=== PATIENT | male | born 1955 | race Caucasian/White ===

== ENCOUNTER 2024-01-20 17:13 | Emergency (ER) | payer MEDICARE, SELFPAY ==
--- NOTE | ~2024-01-20 | CT_ITS ---
EXAMINATION: CT abdomen pelvis w con DATE: 01/20/2024 18:18 INDICATION: Abdominal pain. Back pain. TECHNIQUE: Computed tomography (CT) of the abdomen and pelvis was performed with 100 mL Omnipaque 350 intravenous contrast. Automated exposure control and iterative reconstruction technique were employe d. The dose-length product was 707.98 mGy-cm. COMPARISON: None. FINDINGS: The lungs demonstrate mild atelectasis. No pleural effusion. The heart size is normal. No p ericardial effusion. There is diffuse hepatic steatosis. The gallbladder, spleen, pancreas, and adren al glands are normal. There are cysts in the kidneys measuring up to 3.4 cm on the left. There is a d elayed right-sided contrast nephrogram. There is mild right hydronephrosis and hydroureter. There is a 2 mm stone at right ureterovesicular junction. The prostate is mildly enlarged. There is a left ing uinal hernia containing fat. There are no dilated loops of bowel. The appendix is normal. There are n o pathologically enlarged lymph nodes. There is no free intraperitoneal fluid. There is severe thorac ic and lumbar spondylosis. IMPRESSION: 1. 2 mm stone at right ureterovesicular junction with mild right hydronephrosis and hydroureter. Reviewed, dictated and finalized at location E. IMPRESSION: 1. 2 mm stone at right ureterovesicular junction with mild right hydronephrosi s and hydroureter.
[2024-01-20 17:19] VITALS: BP 158/72; PULSE 76; RESP 18; TEMP 36.6; O2SAT 100
[2024-01-20 17:39] LABS: Basophils Absolute Auto 0.1 K/mm3 (0.0-0.1); Basophils Percent Auto 0.6 % (0.2-1.2); Eosinophils Absolute Auto 0.2 K/mm3 (0-0.3); Eosinophils Percent Auto 1.3 % (0-4.4); Hemoglobin 15.1 g/dL (14.0-18.0); Immature Granulocyte Absolute 0.04 K/mm3 (0.00-0.031); Immature Granulocyte Percent A 0.3 % (0-0.5); Lymphocytes Absolute Auto 1.11 K/mm3 (0.9-3.2); Lymphocytes Percent Auto 9.4 % (18.3-44.2); Mean Corpuscular HGB Conc 33.6 g/dl (32-36); Mean Corpuscular Hemoglobin 30.8 pg (26-34); Mean Corpuscular Volume 91.6 fl (80-100); Mean Platelet Volume 10.2 fl (7.4-10.4); Monocytes Absolute Auto 0.8 K/mm3 (0.1-0.6); Monocytes Percent Auto 6.4 % (2.6-8.5); Neutrophils Absolute Auto 9.7 K/mm3 (1.3-6.7); Platelet Count Result 273 k/mm3 (150-375); Red Blood Count 4.91 M/mm3 (4.6-6.20); Red Cell Distribution Width 11.6 % (11.5-14.5); White Blood Count 11.8 K/mm3 (4.5-10.0)
[2024-01-20 17:53] LABS: Alanine Aminotransferase 49 U/L (6-50); Albumin Level 4.9 g/dL (3.5-5.1); Alkaline Phosphatase 49 U/L (38-126); Anion Gap 10 mmol/L (4-12); Aspartate Amino Transferase 37 U/L (17-59); Bilirubin,Total 1.6 mg/dL (0.2-1.3); Blood Urea Nitrogen 19 mg/dL (9-20); Calcium 10.2 mg/dL (8.4-10.2); Carbon Dioxide 22 mmol/L (22-30); Chloride 107 mmol/L (98-107); Estimated CRCL calculation 59 ml/min; Estimated Glomerular Filt Rate 55; Glucose 117 mg/dL (65-110); Lipase 106 U/L (23-300); Potassium 3.9 mmol/L (3.4-5.0); Sodium 139 mmol/L (137-145)
[2024-01-20] MEDS: ONDANSETRON INJ 4 MG/2 ML VIAL IV PUSH (17:59)
[2024-01-20] MEDS: MORPHINE SULFATE (*CRX) 4 MG/ML INJ IV PUSH (17:59)
[2024-01-20 18:00] LABS: Appearance Urine Turbid (Clear); Bacteria Urine None Seen /hpf; Bilirubin Urine Negative (Negative); Blood Urine 3+ (Negative); Color Urine Dark Yellow (Yellow); Glucose Urine UA Negative (Negative); Ketones Urine Trace mg/dL (Negative); Leukocyte Esterase Ur Trace LEU/UL (Negative); Need Manual Microscopic Reviewed; Nitrate Urine Negative (Negative); Non Pathogenic Casts 0-2; Protein Urine 1+ mg/dL (Negative); RBC Urine >100 /hpf (0-2); Specific Grav Ur 1.026 (1.001-1.035); Squamous Epithelial Cell Urine None Seen /hpf (Few); WBC Urine 0-5 /hpf (0-3); pH Urine 5.5 (5.0-9.0)
[2024-01-20] MEDS: SODIUM CHLORIDE 0.9% IV 1,000 ML 150 ML IV CONT (18:01)
--- NOTE | 2024-01-20 18:07 | ED.ABDPAIN ---
HPI - Abdominal Pain General Chief Complaint: Abdominal Pain Stated Complaint: abdominal pain Time Seen by Provider: 01/20/24 17:33 Source: patient Mode of arrival: ambulatory Limitations: no limitations History of Present Illness HPI narrative: 68-year-old otherwise healthy here with a complaint of back and lower abdominal pain which started last night got worse this afternoon. He denies any nausea or vomiting. MD elicited complaint: abdominal pain Pertinent past history: none Onset (ago): day(s) (1) Pain Consistency: constant Location: diffuse Severity: moderate Quality: aching Radiation: back Migration to: no migration Exacerbating factors: nothing Related Data Allergies Allergy/AdvReac Type Severity Reaction Status Date / Time No Known Allergies Allergy Mild Verified 01/20/24 17:14 Review of Systems Review of Systems: All systems reviewed & are unremarkable except as noted in HPI and below Eyes: Eyes: Reports no additional eye complaints ENT: Reports system reviewed and no additional complaints, except as documented Cardiovascular: Cardiovascular: Reports no additional cardiovascular complaints Respiratory: Respiratory: Reports no additional respiratory complaints Gastrointestinal: Gastrointestinal: Reports as per HPI Musculoskeletal: Musculoskeletal: Reports as per HPI Neurologic: Reports system reviewed and no additional complaints, except as documented Psychiatric: Psychiatric: Reports no additional psychiatric complaints PMFSH Family History Family History Father Cerebrovascular accident Social History Social History Smoking status: Never smoker Alcohol intake: current Exam Narrative: GENERAL: Well-appearing, well-nourished, and in no acute distress. HEAD: Normocephalic, atraumatic. EYES: PERRLA and EOMI. ENT: Nares clear, no rhinorrhea or epistaxis. Mucous membranes moist. NECK: Supple. CHEST: Clear to auscultation. No respiratory distress. HEART: Regular rate and rhythm. No murmur heard. Normal peripheral pulses. ABDOMEN: Soft, diffuse mild tenderness, nondistended, normal active bowel sounds. EXTREMITIES: Normal range of motion. No edema. SKIN: Warm, dry, no rash. NEURO: No focal deficits. Alert and oriented x3. PSYCH: Normal mood and affect. Course Course Emergency Course: Patient states his pain is slightly improved over still continues to have pain. I did inform him and his about the lab work, CT findings. Review very low dose of Toradol 15 mg IV. Advised him to drink plenty of fluids take pain medication as prescribed. Follow-up with the urologist if he is unable to pass the stone Vital Signs Vital signs: Vital Signs Temperature 36.6 C 01/20/24 17:19 Pulse Rate 76 01/20/24 17:19 Respiratory Rate 18 01/20/24 17:19 Blood Pressure 158/72 H 01/20/24 17:19 Pulse Oximetry 100 01/20/24 17:19 Temperature 36.6 C 01/20/24 17:19 Pulse Rate 76 01/20/24 17:19 Respiratory Rate 18 01/20/24 17:19 Blood Pressure 158/72 H 01/20/24 17:19 Pulse Oximetry 100 01/20/24 17:19 MDM - Abdominal Pain Differential Diagnosis Differential diagnosis: Likely abdominal pain and calculus of kidney Medical Records Attestation: I reviewed the patient's medical records. Lab Data Attestation: I reviewed the patient's lab results. 01/20/24 17:25 01/20/24 17:25 Labs: Lab Results 01/20/24 Range/Units 17:25 WBC 11.8 H (4.5-10.0) K/mm3 RBC 4.91 (4.6-6.20) M/mm3 Hgb 15.1 (14.0-18.0) g/dL Hct 45.0 (42.0-52.0) % MCV 91.6 (80-100) fl MCH 30.8 (26-34) pg MCHC 33.6 (32-36) g/dl RDW 11.6 (11.5-14.5) % Plt Count 273 (150-375) k/mm3 MPV 10.2 (7.4-10.4) fl Immature Gran % (Auto) 0.3 (0-0.5) % Neut % (Auto) 82.0 H (45.5-73.1) % Lymph % (Auto) 9.4 L (18.3-44.2) % [place] % (Auto)
[2024-01-20 18:12] LABS: Add Urine Microscopic? YES
[2024-01-20] MEDS: KETOROLAC 30 MG/ML VIAL (*BKC) 15 MG IV PUSH (18:48)
[2024-01-20 19:27] VITALS: BP 141/74; PULSE 76; RESP 20; O2SAT 100
--- NOTE | 2024-01-30 15:47 | PC.NURSE ---
LATE ENTRY This note is being entered to document information to the patient's record. The following information was omitted on [01/20/24], by [Marya Arnett]. NS stop time 1900.
== END 2024-01-20 19:28 | disposition home or self-care (01) ==
PROVIDERS: Emergency Medicine; Emergency Provider Family Medicine; PCP Emergency Medicine
DX: N13.2 Hydronephrosis with renal and ureteral calculous obstruction (principal)
CPT/HCPCS: 36415; 74177; 80053; 81001; 83690; 85025; 96361; 96374; 96375; 99284; J1885; J2270; J2405; J7030; Q9967

== ENCOUNTER 2024-08-04 04:35 | Day surgery (SDC) | payer MEDICARE, SELFPAY ==
[2024-07-20 14:48] VITALS: BMI 32.3
[2024-08-04 11:16] VITALS: BP 150/77; PULSE 74; RESP 16; TEMP 37; O2SAT 97
[2024-08-04] MEDS: LACTATED RINGERS 1,000 ML 150 ML IV CONT (11:17)
--- NOTE | 2024-08-04 12:28 | P.PNAN_ITS ---
Anes - Initial Pre Proc Eval Procedure: Operation Date: 08/04/24 12:30 Proposed Procedures p Screening Colonoscopy - Christiano Gorman MD Date/Time: 08/04/24 12:28 Surgeon: Christiano Gorman MD Pre Op Diagnosis: screening neoplasm colon Patient Data Age: 68 Gender: M Height: 1.8 m Weight: 102.7 kg Last Vital Signs Temp 98.6 F 08/04/24 11:16 Pulse 74 08/04/24 11:16 Resp 16 08/04/24 11:16 BP 150/77 H 08/04/24 11:16 Pulse Ox 97 08/04/24 11:16 O2 Del Method Room Air 08/04/24 11:16 Allergies Allergy/AdvReac Type Severity Reaction Status Date / Time No Known Allergies Allergy Mild Verified 08/04/24 11:12 Home Medications Medication Instructions Recorded Confirmed Type amlodipine 10 mg tablet 10 mg PO DAILY 07/20/24 08/04/24 History lisinopril 40 mg tablet 40 mg PO DAILY 07/20/24 08/04/24 History simvastatin 40 mg tablet 40 mg PO DAILY 07/20/24 08/04/24 History aspirin 81 mg tablet,delayed 81 mg PO DAILY 08/04/24 08/04/24 History release Patient hx anesthesia problems: none Family hx anesthesia problems: none Results Review: All pre-operative results and documents have been reviewed as part of the pre- operative evaluation. [facility] Family History Family History Father Cerebrovascular accident Social History Social History Smoking status: Never smoker Alcohol intake: never Substance use: never Substance use type: does not use Living arrangements: with family Spiritual care concerns: No Anes - Eval Final PreProcedure Day of Procedure 08/04/24 12:28 Patient weight: obese Heart: regular rate and rhythm Lungs: clear to auscultation Airway: Mallampati scale class III Neurological: alert and oriented Last oral intake: >/= 8 hours ASA classification: III Emergent: no Anesthetic plan: proceed Anesthesia type and monitoring: general GIVS and standard monitoring Results Review: All pre-operative results and documents have been reviewed as part of the pre- operative evaluation. HTN, hyperlipidemia, JOSE on CPAP. Informed Consent: The patient's anesthetic plan and its attendant risks and benefits were discussed with the patient/family/POA. Questions were solicited and answers provided to the satisfaction of the patient/family/POA.
--- NOTE | 2024-08-04 12:33 | PM.HPGS ---
History of Present Illness History of Present Illness Consent: Risks, benefits, and alternatives have been discussed and questions answered. Patient agrees to proceed with procedure. Chief complaint: screening neoplasm colon Narrative: Ricki Kraft is a 68 year old male with colon polyp 5 years ago Review of Systems Review of Systems: All systems reviewed & are unremarkable except as noted in HPI and below PMFSH Past Medical History Medical History (Updated 08/04/24 @ 12:33 by Christiano Gorman MD) Colon polyp Family History Family History Father Cerebrovascular accident Social History Social History Smoking status: Never smoker Alcohol intake: never Substance use: never Substance use type: does not use Living arrangements: with family Spiritual care concerns: No Meds Home Medications and Allergies Home Medications Medication Instructions Recorded Confirmed Type amlodipine 10 mg tablet 10 mg PO DAILY 07/20/24 08/04/24 History lisinopril 40 mg tablet 40 mg PO DAILY 07/20/24 08/04/24 History simvastatin 40 mg tablet 40 mg PO DAILY 07/20/24 08/04/24 History aspirin 81 mg tablet,delayed 81 mg PO DAILY 08/04/24 08/04/24 History release Allergies Allergy/AdvReac Type Severity Reaction Status Date / Time No Known Allergies Allergy Mild Verified 08/04/24 11:12 Vital Signs Vital Signs - 24 hr 08/04/24 11:16 Temperature 98.6 F Pulse Rate 74 Respiratory Rate 16 Blood Pressure 150/77 H Pulse Oximetry 97 Oxygen Delivery Room Air Exam Const: General: comfortable and no acute distress HENMT: Face/Nose/Sinus: Normal nares present Eyes: General: appearance normal, both eyes and all related structures Neck: Neck: no JVD Resp: Auscultation: clear to auscultation bilaterally Cardio: Rate: regular rate Rhythm: regular rhythm GI: Inspection: non-distended GI Palp: Yes Soft to palpation Skin: General skin exam: normal color Neuro: General: gait normal Speech: normal speech Extrem: General: normal to inspection Psych: Mental Status: mental status grossly normal Assessment and Plan Assessment and plan (1) Colon polyp: Code(s): K63.5 - Polyp of colon Status: Acute Assessment and Plan: colonoscopy
[2024-08-04 12:51] VITALS: BP 107/64; PULSE 73; RESP 15; O2SAT 97
[2024-08-04 13:01] VITALS: BP 94/64; PULSE 70; RESP 18; O2SAT 100
[2024-08-04 13:11] VITALS: BP 138/76; PULSE 66; RESP 15; O2SAT 100
== END 2024-08-04 13:20 | disposition home or self-care (01) ==
PROVIDERS: PCP Emergency Medicine; Referring Provider Emergency Medicine; Visit Provider Internal Medicine Gastroenterology
PROC: 0DJD8ZZ Inspection of Lower Intestinal Tract, Via Natural or Artificial Opening Endoscopic (ICD-10-PCS; CPT 45378; principal; 2024-08-04 12:30)
DX: Z12.11 Encounter for screening for malignant neoplasm of colon (principal); D12.0 Benign neoplasm of cecum; K64.8 Other hemorrhoids; K57.30 Diverticulosis of large intestine without perforation or abscess without bleeding; E66.9 Obesity, unspecified; Z68.31 Body mass index [BMI] 31.0-31.9, adult; Z79.82 Long term (current) use of aspirin; Z82.49 Family history of ischemic heart disease and other diseases of the circulatory system
CPT/HCPCS: 45385; 88305; J2003; J2704; J7120

== ENCOUNTER 2025-08-04 10:38 | Outpatient (CLI) | payer MEDICARE, SELFPAY ==
[2025-08-03 17:00] LABS: Estimated Glomerular Filt Rate 55
--- OUTSIDE RECORDS SUMMARY | 2025-08-03 20:08 | XMS_ITS | Clinical Summary ---
Author Organization [facility] Address [address] [address] Phone Care Team Providers Care Linux Administrator Name Role Phone Telly Upton Primary Care Provider [phone] Allergies No known active allergies Medications amLODIPine (NORVASC) 5 MG Tablet Take 5 mg by mouth daily. Active Aspirin 81 MG Tablet Take 81 mg by mouth daily. Active ibuprofen (MOTRIN) 200 MG Tablet Take 400 mg by mouth every 8 hours as needed. Active simvastatin (ZOCOR) 40 MG Tablet Take 40 mg by mouth every evening. Active lisinopril (PRINIVIL, ZESTRIL) 40 MG Tablet Take 40 mg by mouth daily. Active Family History Medical History Relation Name Comments Hypertension Brother Stroke Father Diabetes Mother Hypertension Mother Kidney Disease Mother Hypertension Sister Relation Name Status Comments Brother Father Mother Sister Social History Tobacco Use Types Packs/Day Years Used Date Smoking Tobacco: Never Smokeless Tobacco: Never Alcohol Use Standard Drinks/Week Comments Yes 4 (1 standard drink = 0.6 oz pur e alcohol) DAILY Sex and Gender Information Value Date Recorded Sex Assigned at Not on file Legal Sex Male 3:06 PM CDT Gender Identity Not on file Sexual Orientation Not on file Last Filed Vital Signs Vital Sign Reading Time Taken Comments Blood Pressure 108/76 05/17/2019 9:01 AM CDT Pulse 86 05/17/2019 7:06 AM CDT Temperature 36 C (96.8 F) 05/17/2019 9:01 AM CDT Respiratory Rate 14 05/17/2019 9:01 AM CDT Oxygen Saturation 98% 05/17/2019 9:01 AM CDT Inhaled Oxygen Concentration - - Weight 99.8 kg (220 lb) 05/17/2019 7:06 AM CDT Height 182.9 cm (6') 05/17/2019 7:06 AM CDT Body Mass Index 29.84 05/17/2019 7:06 AM CDT Plan of Treatment Health Maintenance Due Date Last Done Comments Hepatitis C Virus (HCV) Screening 1955 TdaP Immunization 1955 Cologuard 1999 Immunochemical Fecal Occult Blood 1999 Pneumococcal Immunization (5 0+ years) (1 of 1 - PCV) 2004 Zoster Immunization (1 of 2) 2004 Colonoscopy 05/17/2024 05/17/2019 Colorectal Cancer Screening 05/17/2024 Influenza Immunization (#1) 2025 SARS-COV-2 Immunization (1 - season) 2025 Respiratory Syncytial Virus (RSV) Immunization (Adult) (1 - 1-dose 75+ series) 2029 Hepatitis B Immunization Aged Out No longer eligible based on patient's age to complete this topic Human Papillomavirus (HPV) Immunization Aged Out No longer eligible b ased on patient's age to complete this topic Meningococcal Immunization (ACWY) Aged Out No longer eligible based on patient's age to complete this topic Rotavirus Immunization Aged Out No lo nger eligible based on patient's age to complete this topic Care Teams Linux Administrator Relationship Specialty Start Date End Date Telly Upton [address] [place] [address] PCP - General Family Medicine 02/19/19
--- NOTE | ~2025-08-04 | CT_ITS ---
EXAMINATION: CTA chest PE protocol DATE: 08/04/2025 11:09 CDT INDICATION: Shortness of breath TECHNIQUE: Computed tomographic angiography (CTA) of the chest was performed with 100 mL Omnipaque-350 intravenous contrast. The dose-length product was 575.00 mGy-cm. Maximum intensity projection 3D-reconstructions of the aorta and other arteries were constructed by the technologist on a separate workstation. COMPARISON: None. FINDINGS: Study is technically adequate without evidence for pulmonary embolism. Heart size normal. No significant pleural or pericardial effusion. No thoracic lymphadenopathy. There is a 6 mm subsolid nodule right upper lobe at the apex. 3 mm solid nodule right lower lobe. There is nodular pleural thickening bilaterally in the apices. IMPRESSION: 1. Subsolid 6 mm nodule right apex, indeterminate; recommend follow-up chest CT in 3-6 months. Small 3 mm right lower lobe nodule may represent benign granuloma or incidental finding. 2: Mild bilateral upper lobe pleural nodularity nonspecific; could relate to prior inflammation or scarring. 3: No evidence for pulmonary embolism or acute airspace disease. Reviewed, dictated and finalized at location O. IMPRESSION: 1. Subsolid 6 mm nodule right apex, indeterminate; recommend follow-up chest CT in 3-6 months. Small 3 mm right lower lobe nodule may represent benign granulo ma or incidental finding. 2: Mild bilateral upper lobe pleural nodularity nonspecific; could relate to pr ior inflammation or scarring. 3: No evidence for pulmonary embolism or acute airspace disease.
--- OUTSIDE RECORDS SUMMARY | 2025-08-04 11:44 | XMS_ITS | Clinical Summary ---
Author Organization [facility] Address [address] [address] Phone Care Team Providers Care Hospitality Services Manager Name Role Phone Telly Upton Primary Care Provider [phone] Allergies No known active allergies Medications amLODIPine [...] age to complete this topic Care Teams Hospitality Services Manager Relationship Specialty Start Date End Date Telly Upton [address] [place] [address] PCP - General Family Medicine 02/19/19
== END 2025-08-04 10:39 | disposition home or self-care (01) ==
PROVIDERS: PCP Emergency Medicine; Visit Provider Emergency Medicine
DX: R06.02 Shortness of breath (principal); R91.8 Other nonspecific abnormal finding of lung field
CPT/HCPCS: 71275; Q9967

== ENCOUNTER 2025-08-26 12:24 | Outpatient (CLI) | payer MEDICARE, SELFPAY ==
--- NOTE | ~2025-08-26 | US_ITS ---
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 Findings: Correlating with the palpable finding there is a complex cystic focus measuring 4.6 x 0.5 x 4.1 cm, no abnormal flow IMPRESSION: Complex focus detailed above, the appearance is not typical for lipoma and may represent a resolving hematoma or abscess. Clinical correlation is required. Follow-up is recommended to assess resolution Reviewed, dictated and finalized at location P. AL UPSTREAM MARKETING MANAGER IMPRESSION: Complex focus detailed above, the appearance is not typical for lip idalmis and may represent a resolving hematoma or abscess. Clinical correlation is required. Follow-up is recommended to assess resolution
== END 2025-08-26 12:25 | disposition home or self-care (01) ==
PROVIDERS: PCP Emergency Medicine; Visit Provider Emergency Medicine
DX: R22.41 Localized swelling, mass and lump, right lower limb (principal)
CPT/HCPCS: 76882

== ENCOUNTER 2025-09-27 09:27 | Outpatient (CLI) | payer MEDICARE, SELFPAY ==
--- NOTE | 2025-09-27 09:39 | ECHO_ITS ---
Patient Info Name: Ricki Kraft Age: 70 years : 1955 Gender: Male Ht: 71 in Wt: 211 lbs BSA: 2.21 m2 HR: 69 bpm BP: 126 / 84 mmHg Technical Quality: Fair Exam Date: 09/27/2025 9:57 AM Patient Status: O Admit Date: 09/27/2025 Exam Type: CA echo doppler color flow Complete two-dimensional, color flow and Doppler transthoracic echocardiogram is performed. Pin Worker: Zuly Rae Attending Provider: Gabriel Mcdowell DO Summary 1. Complete two-dimensional, color flow and Doppler transthoracic echocardiogram is performed. 2. Left ventricular chamber dimension is normal. 3. Left ventricular systolic function is normal, estimated at 60-65. 4. The left ventricular diastolic function is grade I diastolic dysfunction. 5. E/e' 8 is minimally elevated. 6. There is mild to moderate mitral valve regurgitation. 7. There is trace tricuspid valve regurgitation. 8. No pulmonary hypertension, estimated pulmonary arterial systolic pressure is 28 mmHg. Left Ventricle E/e' 8 is minimally elevated. Left ventricular chamber dimension is normal. Left ventricular systolic function is normal, estimated at 60-65. The left ventricular diastolic function is grade I diastolic dysfunction. Right Ventricle Right ventricular chamber dimension is normal. Right ventricular systolic function is normal. Left Atria Left atrial chamber dimension is normal. Right Atria Right atrial chamber dimension is normal. Aortic Valve The aortic valve is trileaflet. There is no aortic valve stenosis. There is no aortic valve regurgitation. Pulmonic Valve There is no pulmonic regurgitation. Mitral Valve There is no mitral valve stenosis. There is mild to moderate mitral valve regurgitation. Tricuspid Valve There is trace tricuspid valve regurgitation. No pulmonary hypertension, estimated pulmonary arterial systolic pressure is 28 mmHg. Pericardium/Pleural There is no pericardial effusion. Inferior Vena Cava Normal inferior vena cava with >50% collapse upon inspiration consistent with normal right atrial pressure, 5 mmHg. Aorta The aortic root size at the sinus of Valsalva is normal. Left Ventricular Outflow Tract Name Value Normal LVOT 2D LVOT Diameter 2.0 cm LVOT Doppler LVOT Peak Velocity 115 cm/s LVOT Peak Gradient 5 mmHg LVOT Mean Gradient 3 mmHg LVOT VTI 22 cm LVOT VTI/AV VTI Ratio 0.8 LVOT Stroke Volume 71 ml LVOT CO 5.0 l/min LVOT CI 2.3 l/min/m2 Pulmonic Valve Name Value Normal RVOT Doppler RVOT Peak Velocity 111 cm/s RVOT Peak Gradient 5 mmHg PV Doppler PV Peak Velocity 137 cm/s PV Peak Gradient 7 mmHg Mitral Valve Name Value Normal MV Diastolic Function MV E Peak Velocity 67 cm/s MV A Peak Velocity 72 cm/s MV E/A 0.9 MV Decel Time (PW) 212 ms Tricuspid Valve Name Value Normal TV Regurgitation Doppler TR Peak Velocity 240 cm/s TR Peak Gradient 18 mmHg Estimated PAP/RSVP RA Pressure 5 mmHg <=5 PA Systolic Pressure 28 mmHg <36 RV Systolic Pressure 28 mmHg <36 TV Annular TDI TV Lateral Hilaria s' Velocity 11.0 cm/s >=9.5 Aorta Name Value Normal Ascending Aorta Ao Root Diameter (MM) 3.0 cm Ao Root Diam Index (MM) 1.3 cm/m2 Aortic Valve Name Value Normal AV Doppler AV Peak Velocity 144 cm/s AV Peak Gradient 8 mmHg AV Mean Gradient 5 mmHg AV VTI 27 cm AV Area (Cont Eq VTI) 2.7 cm2 >=3.0 AV Area (Cont Eq Adiel) 2.6 cm2 AV DI (Adiel) 0.80 AV Regurgitation 2D LVOT Area 3.2 cm2 Ventricles Name Value Normal LV Dimensions 2D/MM IVS Diastolic Thickness (2D) 1.1 cm 0.6-1.0 IVS Diastole Thickness (MM) 1.0 cm 0.6-1.0 LVID Diastole (2D) 5.0 cm 4.2-5.8 LVID Diastole (MM) 4.9 cm 4.2-5.8 LVIW Diastolic Thickness (2D) 0.9 cm 0.6-1.0 LVIW Diastolic Thickness (MM) 0.8 cm 0.6-1.0 LVID Systole (2D) 3.3 cm 2.5-4.0 LVID Systole (MM) 2.5 cm 2.5-4.0 LVOT Diameter 2.0 cm LV Mass (2D Cubed) 179.47 g 88.00-224.00 LV Mass Index (2D Cubed) 81 g/m2 49-115 Relative Wall Thickness (2D) 0.38 <=0.42 LV Mass (MM Cubed) 160.22 g 88.00-224.00 LV Mass Index (MM Cubed) 72 g/m2 49-115 Relative Wall Thickness (MM) 0.35 LV Fractional Shortening/Ejection Fraction 2D/MM LV Fractional Shortening (2D) 33 % 25-43 LV Fractional Shortening (MM) 49 % 25-43 LV EF (MM Teichholz) 81 % LV EF (2D Teichholz) 61 % LV Diastolic Volume (4C MOD) 82 ml LV EF (4C MOD) 63 % LV Diastolic Volume (2C MOD) 70 ml LV EF (2C MOD) 57 % LV Diastolic Volume (BP MOD) 76 ml 62-150 LV Diastolic Volume Index (BP MOD) 34 ml/m2 34-74 LV Systolic Volume (BP MOD) 33 ml 21-61 LV Systolic Volume Index (BP MOD) 15 ml/m2 11-31 LV EF (BP MOD) 57 % 52-72 LV Diastolic Length (4C) 8.0 cm LV Systolic Length (4C) 7.7 cm LV Stroke Volume (4C MOD) 52 ml Atria Name Value Normal LA Dimensions LA Dimension (MM) 3.6 cm 3.0-4.0 LA Volume (4C A-L) 46 ml LA Volume (BP A-L) 55 ml RA Dimensions RA Systolic Major Stewart Length (4C) 5.6 cm 2.1-2.7 RA Area (4C) 15.4 cm2 <=18.0 Report Signatures
--- OUTSIDE RECORDS SUMMARY | 2025-09-27 10:43 | XMS_ITS | Clinical Summary ---
Author Organization [facility] Address [address] [address] Phone Care Team Providers Care Educational Administrator Name Role Phone Telly Upton Primary Care Provider [phone] Allergies No known active allergies Medications amLODIPine [...] age to complete this topic Care Teams Educational Administrator Relationship Specialty Start Date End Date Telly Upton [address] [place] [address] PCP - General Family Medicine 02/19/19
== END 2025-09-27 09:28 | disposition home or self-care (01) ==
LOC: ANHCARD 09:33
PROVIDERS: PCP Emergency Medicine; Visit Provider Internal Medicine Cardiovascular Disease
DX: R06.09 Other forms of dyspnea (principal); I34.0 Nonrheumatic mitral (valve) insufficiency
CPT/HCPCS: 93306